=== PATIENT | female | born 1995 | race Caucasian/White ===

== ENCOUNTER 2022-04-25 02:45 | Emergency (ER) | payer OTHER ==
[2022-04-25] MEDS ORDERED: NAPROSYN500 MG PO (04:44)
[2022-04-25] MEDS ORDERED: CLEOCIN HCL300 MG PO (04:44)
== END 2022-04-25 05:51 | disposition home or self-care (01) ==
LOC: ER1 02:45
DX: K02.9 Dental caries, unspecified (principal)
CPT/HCPCS: 96372; 99282; J1885